=== PATIENT | female | born 1975 | race Caucasian/White ===

== ENCOUNTER 2023-03-31 13:58 | Emergency (ER) | payer OTHER ==
[~2023-03-31] VITALS: Ht 167.6 cm; Wt 77.3 kg
[2023-03-31 14:57] VITALS: TEMP 99.3
[2023-03-31] MEDS ORDERED: LABETALOL HCL 5 MG/ML 20 ML VIAL IVP ONE (15:15)
[2023-03-31 15:26] LABS: BASOPHILS % (AUTO) 1.4 % (0.0-2.0); EOSINOPHILS % (AUTO) 0.8 % (1.0-6.0); HEMATOCRIT 45.9 % (36-46); HEMOGLOBIN 15.8 g/dL (12.0-16.0); LYMPHOCYTES # (AUTO) 1.6 K/uL (1.0-4.8); LYMPHOCYTES % (AUTO) 28.9 % (22.0-44.0); MEAN CORPUSCULAR HEMOGLOBIN 31.5 pg (26.0-34.0); MEAN CORPUSCULAR HGB CONC 34.4 G/dL (31.0-37.0); MEAN CORPUSCULAR VOLUME 92 fL (80-100); MONOCYTES # (AUTO) 0.5 K/uL (0.1-1.0); MONOCYTES % (AUTO) 9.2 % (2.0-9.0); NEUTROPHILS # (AUTO) 3.3 K/uL (1.8-7.7); NEUTROPHILS % (AUTO) 59.7 % (40.0-70.0); PLATELET COUNT (AUTO) 197 K/uL (150-450); RED BLOOD CELL COUNT(AUTO) 5.02 MIL/uL (4.00-5.20)
[2023-03-31 15:37] LABS: ANION GAP 9 mmol/L (8-16); CALCIUM, TOTAL 8.8 mg/dL (8.8-10.5); CARBON DIOXIDE 25 mmol/L (22-29); CHLORIDE 99 mmol/L (98-107); GLOMERULAR FILTR. RATE CALC > 60 mL/min (>60); GLUCOSE,RANDOM 97 mg/dL (70-110); SODIUM SERUM 133 mmol/L (136-145)
[2023-03-31 15:43] LABS: ALANINE AMINOTRANSFERASE 23 U/L (12-78); ALBUMIN 4.1 g/dL (3.4-5.0); ALKALINE PHOSPHATASE 81 U/L (46-116); ASPARTATE AMINOTRANSFERASE 21 U/L (15-37); BILIRUBIN,TOTAL 0.8 mg/dL (0.1-1.0); LIPASE 30 U/L (16-77)
[2023-03-31 15:45] LABS: LACTIC ACID 0.7 mmol/L (0.4-2.0)
[2023-03-31] MEDS ORDERED: AmLODIPine BESYLATE 10 MG TABLET PO ONE (16:15)
[2023-03-31 16:20] VITALS: BP 144/85; PULSE 5; RESP 18
== END 2023-03-31 22:11 | disposition home or self-care (01) ==
LOC: EMS 13:59
DX: I10 Essential (primary) hypertension (principal); Z65.3 Problems related to other legal circumstances; Z98.51 Tubal ligation status; Z88.6 Allergy status to analgesic agent
CPT/HCPCS: 99285; 96374; 80053; 83605; 83690; 84484; 84703; 85025; 36415; 93005; G0480; 99284

== ENCOUNTER 2023-04-02 10:31 | Emergency (ER) | payer OTHER ==
[~2023-04-02] VITALS: Ht 167.6 cm; Wt 77.3 kg
[2023-04-02 10:52] VITALS: TEMP 98.5
[2023-04-02] MEDS ORDERED: AmLODIPine BESYLATE 5 MG TABLET PO ONE (11:15)
[2023-04-02 13:58] VITALS: BP 166/106; PULSE 71; RESP 12
== END 2023-04-02 13:58 | disposition home or self-care (01) ==
LOC: EMS 10:42
DX: I10 Essential (primary) hypertension (principal); Z98.51 Tubal ligation status; Z76.0 Encounter for issue of repeat prescription
CPT/HCPCS: 99283

== ENCOUNTER 2023-10-14 13:01 | Emergency (ER) | payer MEDICAID, OTHER ==
[~2023-10-14] VITALS: Ht 167.6 cm; Wt 79.5 kg
[2023-10-14 14:28] VITALS: TEMP 98.2
[2023-10-14] MEDS: ACETAMINOPHEN 500 MG TABLET PO ONE (14:53)
[2023-10-14 16:14] VITALS: BP 155/101; PULSE 75; RESP 16
== END 2023-10-14 16:54 | disposition home or self-care (01) ==
LOC: EMS 14:13
DX: S92.351A Displaced fracture of fifth metatarsal bone, right foot, initial encounter for closed fracture (principal); I10 Essential (primary) hypertension; Z98.51 Tubal ligation status; Z88.6 Allergy status to analgesic agent; W22.8XXA Striking against or struck by other objects, initial encounter; Y93.89 Activity, other specified; Y92.89 Other specified places as the place of occurrence of the external cause; Y99.8 Other external cause status
CPT/HCPCS: 29515; 99284; 73562-TC; 73590-TC; 73610-TC; 73630-TC; Z7502; Z7610